=== PATIENT | female | born 1980 | race Two or more races ===

== ENCOUNTER → 2016-05-12 | Outpatient (CLI) | payer OTHER ==
[~2016-05-12] MED LIST: MACR100C2 PO
[2016-05-12 08:53] LABS: AUTOMATED NEUTROPHIL # 5.4 TH/MM3 (1.8-7.7); BASOPHIL % 0.6 % (0.0-2.0); EOSINOPHIL # 0.2 TH/MM3 (0-0.4); EOSINOPHIL % 3.1 % (0.0-4.0); HEMO FLAGS DIFF FINAL; LYMPH % 17.3 % (9.0-44.0); LYMPHOCYTE # 1.2 TH/MM3 (1.0-4.8); MEAN CELL VOLUME 85.9 FL (80.0-100.0); MEAN CORPUSCULAR HEMOGLOBIN 28.5 PG (27.0-34.0); MEAN CORPUSCULAR HGB CONC 33.2 % (32.0-36.0); MONO % 4.5 % (0.0-8.0); NEUT % 74.5 % (16.0-70.0); PLATELET COUNT 192 TH/MM3 (150-450); RED BLOOD COUNT 4.19 MIL/MM3 (4.00-5.30); RED CELL DISTRIBUTION WIDTH 12.9 % (11.6-17.2); WHITE BLOOD COUNT 7.1 TH/MM3 (4.0-11.0)
[2016-05-12 13:34] LABS: BACTERIA, URINE MANY /hpf; BLOOD, URINE TRACE (NEG); GLUCOSE,URINE NEG (NEG); KETONE, URINE TRACE mg/dL (NEG); MUCUS URINE FEW /lpf (OCC); SQUAMOUS EPITHELIAL CELL URINE 1 /hpf (0-5); URINE COLOR YELLOW (YELLW/STRAW)
[2016-05-12 13:36] LABS: COMMENT (UR) CULTURE INDICATED; CULTURE IF INDICATED CULTURE INDICATED; NITRITE,URINE POS (NEG)
[2016-05-12 13:46] LABS: AMPHETAMINE, URINE NEG (NEG); BARBITURATES, URINE NEG (NEG); COCAINE, URINE NEG (NEG)
[2016-05-12 13:50] LABS: RUBELLA IGG ANTIBODY 134.8 IU/mL (10.0-500.0); RUBELLA STATUS IMMUNE (IMMUNE)
[2016-05-12 14:11] LABS: SICKLE CELL SCREEN NEG (NEG)
[2016-05-12 14:32] LABS: HEPATITIS B SURFACE ANTIBODY 38.1 mIU/mL
[2016-05-14 13:45] LABS: FREE T4 0.89 NG/DL (0.76-1.46)
[2016-05-15 15:14] LABS: RAPID PLASMA REAGIN SCREEN NON-REACTIVE (NON-REACTVE)
== END ==
LOC: OLAB 07:48
PROVIDERS: ATTEND Obstetrics & Gynecology
DX: O23.41 Unspecified infection of urinary tract in pregnancy, first trimester (principal); B96.20 Unspecified Escherichia coli [E. coli] as the cause of diseases classified elsewhere; Z3A.01 Less than 8 weeks gestation of pregnancy
CPT/HCPCS: 36415; 80307; 81001; 84439; 84443; 85025; 85660; 86317; 86592; 86703; 86762; 86850; 86900; 86901; 87077; 87086; 87186

== ENCOUNTER → 2016-06-06 | Outpatient (CLI) | payer OTHER ==
[2016-06-06 13:49] LABS: ANION GAP 10 MEQ/L (5-15); AST (GOT) 11 U/L (15-37); BICARBONATE 22.7 MEQ/L (21.0-32.0); BLOOD UREA NITROGEN 11 MG/DL (7-18); CHLORIDE 105 MEQ/L (98-107); GLOMERULAR FILTRATION RATE 89 ML/MIN (>89); POTASSIUM 3.7 MEQ/L (3.5-5.1); SODIUM (NA) 138 MEQ/L (136-145)
[2016-06-06 14:09] LABS: ALKALINE PHOSPHATASE 55 U/L (45-117); ALT (GPT) 18 U/L (10-53); FREE T4 0.96 NG/DL (0.76-1.46); GLUCOSE,FASTING 73 MG/DL (74-99); TOTAL BILIRUBIN ADULT 0.5 MG/DL (0.2-1.0)
== END ==
LOC: CLAB 13:05
PROVIDERS: ATTEND Internal Medicine Endocrinology, Diabetes & Metabolism
DX: E03.9 Hypothyroidism, unspecified (principal)
CPT/HCPCS: 36415; 80053; 84439; 84443

== ENCOUNTER → 2016-06-28 | Outpatient (CLI) | payer OTHER ==
[2016-06-28 10:15] LABS: BACTERIA, URINE MANY /hpf; BLOOD, URINE TRACE (NEG); GLUCOSE,URINE NEG (NEG); KETONE, URINE NEG (NEG); MUCUS URINE FEW /lpf (OCC); NITRITE,URINE NEG (NEG); SQUAMOUS EPITHELIAL CELL URINE <1 /hpf (0-5); URINE COLOR YELLOW (YELLW/STRAW)
[2016-06-28 10:45] LABS: FREE T4 1.15 NG/DL (0.76-1.46)
== END ==
LOC: OLAB 07:55
PROVIDERS: ATTEND Obstetrics & Gynecology
DX: N39.0 Urinary tract infection, site not specified (principal); B96.20 Unspecified Escherichia coli [E. coli] as the cause of diseases classified elsewhere; E03.9 Hypothyroidism, unspecified
CPT/HCPCS: 81001; 84439; 84443; 87077; 87086; 87186

== ENCOUNTER 2016-07-11 20:33 | Emergency (ER) | payer OTHER ==
--- NOTE | 2016-07-11 21:20 | PD ---
HPI Chief Complaint Flank pain right side Date Seen: Jul 11, 2016 Time Seen: 21:15 Travel History International Travel<30 Days: No Contact w/Intl Traveler<30Days: No Known Affected Area: No History of Present Illness HPI 35-year-old female at 18 weeks 4 days sent here by Dr. Mcclellan due to right flank pain since yesterday. Patient denies fever, dysuria, urgency, or frequency. She does complain of a little suprapubic pressure and felt a little dizziness this morning. She has had an uncomplicated that she has experienced 2 prior urinary tract infections and she treated both with Keflex. She did not obtain a post antibiotic urine culture to ensure eradication. Para: 2 : 3 History Past Medical History Narrative Medical Hypothyroidism Obstetric History Obstetric History Spontaneous vaginal delivery 2 Past Surgical History Surgical History: No Previous Surgery Family History Family History: Negative Social History Alcohol Use: No Tobacco Use: No Substance Abuse: No Allergies-Medications (Allergen,Severity, Reaction): Coded Allergies: No Known Allergies (Unverified , 07/11/16) Comments No medication allergies Narrative Medication Synthroid 125 g daily Review of Systems Except as stated in HPI: all other systems reviewed are Neg Physical Exam Narrative GENERAL: Well-nourished, well-developed patient. SKIN: Warm and dry. HEAD: Normocephalic and atraumatic. EYES: No scleral icterus. No injection or drainage. ENT: No nasal drainage noted. Mucous membranes pink. Airway patent. NECK: Supple, trachea midline. No JVD. CARDIOVASCULAR: Regular rate and rhythm without murmurs, gallops, or rubs. RESPIRATORY: Breath sounds equal bilaterally. No accessory muscle use. BREASTS: Bilateral exam showed no masses , no retractions, no nipple discharge. ABDOMEN/GI: Abdomen soft, non-tender, bowel sounds present, no rebound, no guarding. Very mild tenderness in the right flank. Gravid to [-20] weeks size Fundal Height: [-] GENITOURINARY: Deferred FHT's: 135 by Doppler EXTREMITIES: No cyanosis or edema. BACK: Nontender without obvious deformity. NEUROLOGICAL: Awake and alert. Motor and sensory grossly within normal limits. Five out of 5 muscle strength in all muscle groups. Normal speech. Data Data Vital Signs Reviewed: Yes Orders Urinalysis - C+S If Indicated (07/11/16 20:47) Complete Blood Count With Diff (07/11/16 21:11) Labs Laboratory Tests Test 07/11/16 07/11/16 20:47 21:15 Urine Color LIGHT-YELLOW Urine Turbidity HAZY Urine pH 6.0 Urine Specific [place] 1.010 Urine Protein TRACE mg/dL Urine Glucose (UA) NEG mg/dL Urine Ketones NEG mg/dL Urine Occult Blood SMALL Urine Nitrite NEG Urine Bilirubin NEG Urine Urobilinogen LESS THAN 2.0 MG/DL Urine Leukocyte Esterase LARGE Urine RBC 7 /hpf Urine WBC /hpf Urine WBC Clumps OCC Urine Squamous Epithelial 1 /hpf Cells Urine Bacteria RARE /hpf Urine Yeast (Budding) Microscopic Urinalysis Comment CULTURE INDICATED White Blood Count 8.7 TH/MM3 Red Blood Count 3.42 MIL/MM3 Hemoglobin 10.1 GM/DL Hematocrit 29.6 % Mean Corpuscular Volume 86.4 FL Mean Corpuscular Hemoglobin 29.5 PG Mean Corpuscular Hemoglobin 34.2 % Concent Red Cell Distribution Width 13.7 % Platelet Count 185 TH/MM3 Mean Platelet Volume 8.2 FL Neutrophils (%) (Auto) 72.9 % Lymphocytes (%) (Auto) 16.5 % Monocytes (%) (Auto) 7.0 % Eosinophils (%) (Auto) 3.2 % Basophils (%) (Auto) 0.4 % Neutrophils # (Auto) 6.3 TH/MM3 Lymphocytes # (Auto) 1.4 TH/MM3 Monocytes # (Auto) 0.6 TH/MM3 Eosinophils # (Auto) 0.3 TH/MM3 Basophils # (Auto) 0.0 TH/MM3 CBC Comment DIFF FINAL Differential Comment MDM Plan 35-year-old female with a lower urinary tract infection. Patient is afebrile with a normal white blood cell count. He has taken Keflex before during this and probably has not had eradication with this particular antibiotic. Macrobid will be prescribed with first dose here in the OB ED and then a written prescription given. Recommendations were given for a urine culture after completion of antibiotic. Diagnosis Diagnosis: Primary Impression: Urinary tract infection affecting care of mother in second trimester, antepartum Additional Impression: 18 weeks gestation of Disposition: DISCHARGE HOME Nereida Argueta MD Jul 11, 2016 21:20
[2016-07-11 21:35] LABS: AUTOMATED NEUTROPHIL # 6.3 TH/MM3 (1.8-7.7); BASOPHIL % 0.4 % (0.0-2.0); EOSINOPHIL # 0.3 TH/MM3 (0-0.4); EOSINOPHIL % 3.2 % (0.0-4.0); HEMATOCRIT 29.6 % (35.0-46.0); HEMO FLAGS DIFF FINAL; LYMPH % 16.5 % (9.0-44.0); LYMPHOCYTE # 1.4 TH/MM3 (1.0-4.8); MEAN CELL VOLUME 86.4 FL (80.0-100.0); MEAN CORPUSCULAR HEMOGLOBIN 29.5 PG (27.0-34.0); MEAN CORPUSCULAR HGB CONC 34.2 % (32.0-36.0); NEUT % 72.9 % (16.0-70.0); PLATELET COUNT 185 TH/MM3 (150-450); RED BLOOD COUNT 3.42 MIL/MM3 (4.00-5.30); RED CELL DISTRIBUTION WIDTH 13.7 % (11.6-17.2); WHITE BLOOD COUNT 8.7 TH/MM3 (4.0-11.0)
[2016-07-11 21:47] LABS: BACTERIA, URINE RARE /hpf; BLOOD, URINE SMALL (NEG); COMMENT (UR) CULTURE INDICATED; CULTURE IF INDICATED CULTURE INDICATED; GLUCOSE,URINE NEG (NEG); KETONE, URINE NEG (NEG); NITRITE,URINE NEG (NEG); SQUAMOUS EPITHELIAL CELL URINE 1 /hpf (0-5); URINE COLOR LIGHT-YELLOW (YELLW/STRAW)
[2016-07-11] MEDS ORDERED: NITROFURANTOIN MONOHYD MACROCR 100 MG CAP PO STA (22:02)
[2016-07-11] MEDS ORDERED: MACR100C2 PO (22:10)
== END 2016-07-11 22:00 | disposition home or self-care (01) ==
LOC: HOBED 20:33
DX: O23.42 Unspecified infection of urinary tract in pregnancy, second trimester (principal); Z3A.18 18 weeks gestation of pregnancy
CPT/HCPCS: 81001; 85025; 87086; 99284

== ENCOUNTER → 2016-09-06 | Outpatient (CLI) | payer OTHER ==
[2016-09-06 11:33] LABS: REVIEW FLAG FINAL
[2016-09-06 12:23] LABS: BACTERIA, URINE OCC /hpf; BLOOD, URINE NEG (NEG); GLUCOSE,URINE NEG (NEG); KETONE, URINE NEG (NEG); NITRITE,URINE NEG (NEG); PH, URINE 6.5 (5.0-8.5); SQUAMOUS EPITHELIAL CELL URINE <1 /hpf (0-5); URINE COLOR YELLOW (YELLW/STRAW)
[2016-09-06 13:57] LABS: FREE T4 0.96 NG/DL (0.76-1.46)
== END ==
LOC: OLAB 09-05 09:27 → CLAB 09:41
PROVIDERS: ATTEND Obstetrics & Gynecology
DX: O23.43 Unspecified infection of urinary tract in pregnancy, third trimester (principal); B96.7 Clostridium perfringens [C. perfringens] as the cause of diseases classified elsewhere; B96.1 Klebsiella pneumoniae [K. pneumoniae] as the cause of diseases classified elsewhere; B96.20 Unspecified Escherichia coli [E. coli] as the cause of diseases classified elsewhere; E03.9 Hypothyroidism, unspecified
CPT/HCPCS: 36415; 81001; 82951; 84439; 84443; 85014; 85018; 86703; 87077; 87086; 87186; 87340; G0480

== ENCOUNTER 2016-12-01 09:58 | Inpatient (IN) | payer OTHER ==
[~2016-12-01] VITALS: Ht 167.6 cm; Wt 116.0 kg
[2016-12-01] VITALS (65 sets, daily range): BP systolic 90–139; BP diastolic 15–105; PULSE 57–193; RESP 8–20; TEMP 98–98.9
[2016-12-01] MEDS ORDERED: LACTATED RINGER'S 1000 ML INJ 1,000 ML IV PRN (10:21)
[2016-12-01] MEDS ORDERED: SODIUM CHLOR 0.9% 1000 ML INJ 1,000 ML OTHER PRN (10:21)
[2016-12-01] MEDS ORDERED: ONDANSETRON HCL 4 MG/2 ML VIAL IV PRN (10:30)
[2016-12-01] MEDS ORDERED: MISOPROSTOL 25 MCG SUPP VAGINAL ONE (10:30)
[2016-12-01] MEDS ORDERED: LIDOCAINE HCL 1% 50 ML VIAL I-DERMAL PRN (10:30)
[2016-12-01] MEDS ORDERED: OXYTOCIN 30 UNITS-500ML PREMIX 500 ML IV ONE (10:30)
[2016-12-01] MEDS ORDERED: SODIUM CHLORIDE 0.9% FLUSH 10 ML FLUSH IV FLUSH PRN ×2 (10:30→18:45)
[2016-12-01] MEDS ORDERED: MINERAL OIL 10 ML VIAL TOPICAL PRN (10:30)
[2016-12-01] MEDS ORDERED: LIDOCAINE HCL 1% 50 ML VIAL INFIL PRN (10:30)
[2016-12-01] MEDS ORDERED: CITRIC ACID-SODIUM CITRATE LIQ 30 ML UDC PO SCH (10:30)
[2016-12-01] MEDS ORDERED: SODIUM CHLORID 0.9% 500 ML INJ 500 ML IV PRN (10:30)
[2016-12-01] MEDS: LACTATED RINGER'S 1000 ML INJ 1,000 ML IV SCH ×2 (10:40→17:54)
[2016-12-01] MEDS ORDERED: SODIUM CHLOR 0.9% 1000 ML INJ 1,000 ML IV PRN (10:41)
--- NOTE | 2016-12-01 10:41 | HHI.HP ---
HPI Chief Complaint iol at term Travel History International Travel<30 Days: No Contact w/Intl Traveler<30Days: No Known Affected Area: No History of Present Illness HPI 36 yo with iup at 39w3d by first trimester u/s admitted for iol at term , AMA, suspected macrosomia. PNC c/b hypothyroidism, managed by endocrine; anemia, managed by hematology; recurrent uti, on suppression. She has good FM, irreg ctx, no lof or vb. Weeks Gestation: 39 Para: 2 : 3 History Past Medical History Narrative Medical anemia, B12 deficiency, Maddie thryroiditis. seasonal allergies. recurrent anemia Obstetric History Obstetric History 2 ftsvd, no complications. under 7 lb Past Surgical History Surgical History: No Previous Surgery Family History Family History: Negative Social History Alcohol Use: No Tobacco Use: No Substance Abuse: No Allergies-Medications (Allergen,Severity, Reaction): Coded Allergies: No Known Allergies (Unverified , 07/11/16) Home Meds Active Scripts Nitrofurantoin Monohydrate Macrocrystals (Macrobid) 100 Mg Cap, 100 MG PO BID for Infection, #14 CAP 0 Refills Prov:Nereida Argueta MD 07/11/16 Review of Systems General / Constitutional: No: Fever, Weight Gain, Chills, Other Eyes: No: Diploplia, Blurred Vision, Visual changes, Pain, Photophobia HENT: No: Headaches, Vertigo, Lightheadedness Cardiovascular: No: Irregular Rhythm, Chest Pain or Discomfort, Palpitations, Tachycardia, Syncope, Varicosities, Edema, Cyanosis Respiratory: No: Cough, Short of Breath, Other Gastrointestinal: No: Nausea, Vomiting, Diarrhea Genitourinary: No: Decreased Urinary Output, Oliguria Musculoskeletal: No: Limited ROM, Weakness, Cramping, Edema, Pain Skin: No Rash, No Itching, No Dryness, No Lumps, No Change in Pigmentation, No Change in Nails, No Alopecia, No Lesions Neurologic: No: Weakness, Dizziness, Syncope, Focal Abnormalities, Coordination Problem, Headache, Slurred Speech, Seizures Psychiatric: No: Depression, Suicidal Ideations, Homicidal Ideation Endocrine: No: Heat Intolerance, Cold Intolerance, Polydipsia, Polyuria, Other Physical Exam Narrative GENERAL: Well-nourished, well-developed patient. SKIN: Warm and dry. HEAD: Normocephalic and atraumatic. EYES: No scleral icterus. No injection or drainage. ENT: No nasal drainage noted. Mucous membranes pink. Airway patent. NECK: Supple, trachea midline. No JVD. CARDIOVASCULAR: Regular rate and rhythm without murmurs, gallops, or rubs. RESPIRATORY: Breath sounds equal bilaterally. No accessory muscle use. ABDOMEN/GI: Abdomen soft, non-tender, bowel sounds present, no rebound, no guarding Gravid to 39 weeks size GENITOURINARY: External Genitalia: intact and normal in appearance BUS glands: [-] Cervix:1-, soft posterior in office yesterday; per nurse check today /, mid to posterior Presentation:ceph Membranes: [intact Uterine Contractions: [-] FHT's: Category: I Decels: [-] EXTREMITIES: No cyanosis or edema. BACK: Nontender without obvious deformity. No CVA tenderness. NEUROLOGICAL: Awake and alert. Motor and sensory grossly within normal limits. Five out of 5 muscle strength in all muscle groups. Normal speech. Caprini VTE Risk Assessment Caprini VTE Risk Assessment: No/Low Risk (score <= 1) VTE Pharm Contraindication: High risk for bleeding Caprini Risk Assessment Model Point Value = 1 Point Value = 2 Point Value = 3 Point Value = 5 Age 41-60 Minor surgery BMI > 25 kg/m2 Swollen legs Varicose veins or History of unexplained or recurrent spontaneous Oral contraceptives or hormone replacement Sepsis (< 1 month) Serious lung disease, including pneumonia (< 1 month) Abnormal pulmonary function Acute myocardial infarction Congestive heart failure (< 1 month) History of inflammatory bowel disease Medical patient at bed rest Age 61-74 Arthroscopic surgery Major open surgery (> 45 min) Laparoscopic surgery (> 45 min) Malignancy Confined to bed (> 72 hours) Immobilizing plaster cast Central venous access Age >= 75 History of VTE Family history of VTE Factor V Leiden Prothrombin [id number] Lupus anticoagulant Anticardiolipin antibodies Elevated serum homocysteine Heparin-induced thrombocytopenia Other congenital or acquired thrombophilia Stroke (< 1 month) Elective arthroplasty Hip, pelvis, or leg fracture Acute spinal cord injury (< 1 month) Prophylaxis Regimen Total Risk Factor Score Risk Level Prophylaxis Regimen 0-1 Low Early ambulation 2 Moderate Order ONE of the following: *Sequential Compression Device (SCD) *Heparin 5000 units SQ BID 3-4 Higher Order ONE of the following medications: *Heparin 5000 units SQ TID *Enoxaparin/Lovenox 40 mg SQ daily (WT < 150 kg, CrCl > 30 mL/min) *Enoxaparin/Lovenox 30 mg SQ daily (WT < 150 kg, CrCl > 10-29 mL/min) *Enoxaparin/Lovenox 30 mg SQ BID (WT < 150 kg, CrCl > 30 mL/min) AND/OR *Sequential Compression Device (SCD) 5 or more Highest Order ONE of the following medications: *Heparin 5000 units SQ TID (Preferred with Epidurals) *Enoxaparin/Lovenox 40 mg SQ daily (WT < 150 kg, CrCl > 30 mL/min) *Enoxaparin/Lovenox 30 mg SQ daily (WT < 150 kg, CrCl > 10-29 mL/min) *Enoxaparin/Lovenox 30 mg SQ BID (WT < 150 kg, CrCl > 30 mL/min) AND *Sequential Compression Device (SCD) Data Data Vital Signs Reviewed: Yes Orders Orders Admit To Inpatient (12/01/16 ) Vital Signs (Adult) .Per protocol (12/01/16 10:21) Activity Oob Ad Linda (12/01/16 10:21) Heart (12/01/16 10:21) Amnioinfusion (12/01/16 10:21) Urinary Catheter Management .ONCE (12/01/16 10:21) Lactated Ringer's 1000 Ml Inj (Lr 1000 M (12/01/16 10:21) Lactated Ringer's 1000 Ml Inj (Lr 1000 M (12/01/16 10:21) Sodium Chlorid 0.9% 500 Ml Inj (Ns 500 M (12/01/16 10:30) Sodium Chlor 0.9% 1000 Ml Inj (Ns 1000 M (12/01/16 10:41) Lidocaine 1% Inj (50 Ml) (Xylocaine 1% I (12/01/16 10:30) Group B Strep: Negative Assessment/Plan Problem List: (1) Advanced maternal age in multigravida ICD Codes: O09.529 - Supervision of elderly multigravida, unspecified trimester Qualifiers: Qualified Codes: O09.523 - Supervision of elderly multigravida, third trimester (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 1) IOL- sheehan score improved on todya's exam. will start with pitocin and likely arom next check. 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
[2016-12-01 10:49] LABS: AUTOMATED NEUTROPHIL # 4.9 TH/MM3 (1.8-7.7); BASOPHIL % 0.3 % (0.0-2.0); EOSINOPHIL # 0.1 TH/MM3 (0-0.4); EOSINOPHIL % 1.6 % (0.0-4.0); HEMATOCRIT 32.1 % (35.0-46.0); HEMO FLAGS DIFF FINAL; LYMPH % 17.3 % (9.0-44.0); LYMPHOCYTE # 1.2 TH/MM3 (1.0-4.8); MEAN CELL VOLUME 86.5 FL (80.0-100.0); MEAN CORPUSCULAR HEMOGLOBIN 30.3 PG (27.0-34.0); MONO % 8.3 % (0.0-8.0); NEUT % 72.5 % (16.0-70.0); PLATELET COUNT 170 TH/MM3 (150-450); RED BLOOD COUNT 3.71 MIL/MM3 (4.00-5.30); RED CELL DISTRIBUTION WIDTH 15.2 % (11.6-17.2); WHITE BLOOD COUNT 6.7 TH/MM3 (4.0-11.0)
[2016-12-01 10:50] LABS: BLOOD, URINE NEG (NEG); COMMENT (UR) CULT NOT INDICATED; CULTURE IF INDICATED CULT NOT INDICATED; GLUCOSE,URINE NEG (NEG); KETONE, URINE NEG (NEG); MUCUS URINE FEW /lpf (OCC); NITRITE,URINE NEG (NEG); PH, URINE 6.5 (5.0-8.5); SQUAMOUS EPITHELIAL CELL URINE 1 /hpf (0-5); URINE COLOR YELLOW (YELLW/STRAW)
[2016-12-01] MEDS ORDERED: OXYTOCIN 30 UNITS-500ML PREMIX 500 ML IV SCH ×2 (11:00→18:45)
[2016-12-01] MEDS ORDERED: MISOPROSTOL 25 MCG SUPP VAGINAL PRN (14:30)
--- NOTE | 2016-12-01 14:56 | PD.LABORPN ---
Subjective Subjective Pt feeling comfortable, contractions not strong yet. On pit of 16 Objective Vital Signs Vital Signs Date Time Temp Pulse Resp B/P (MAP) Pulse Ox O2 Delivery O2 Flow Rate FiO2 12/01/16 14:32 105 123/79 (94) 12/01/16 13:35 59 134/36 (68) 12/01/16 12:28 98.1 67 18 121/68 (85) 12/01/16 11:45 98.3 18 12/01/16 11:36 89 117/66 (83) 12/01/16 10:30 98.3 12/01/16 10:30 18 Objective Pelvic Exam: Uterine Contractions: q 4+ min FHT's: Category: I Baseline: 140 Reactive: [-] Variability:mod Decels: [-] Weeks Gestation: 39 Gest Age Assessed Date: Dec 01, 2016 Gest Age Assessed Time: 14:55 Pt started active labor?: No Medical induction of labor?: Yes Medical induction start date: Dec 01, 2016 Medical induction start time: 10:00 Artificial rupture of membrane: Yes Artificial ROM date: Dec 01, 2016 Artifical ROM time: 14:56 Assessment/Plan Problem List: (1) Advanced maternal age in multigravida ICD Codes: O09.529 - Supervision of elderly multigravida, unspecified trimester Qualifiers: Qualified Codes: O09.523 - Supervision of elderly multigravida, third trimester (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 1) IOL- exam /3, arom this check 1455, clear. 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
[2016-12-01] MEDS ORDERED: fentaNYL 2MCG-BUPIV 0.125% INJ 100 ML ONE (15:46)
[2016-12-01] MEDS ORDERED: MEASLES, MUMPS, RUBELLA VACCINE 0.5 ML VIAL SQ ONE (16:00)
[2016-12-01] MEDS ORDERED: DIPHTH/TETANUS/ACEL PERTUSSIS (BOOSTER) 0.5 ML VIAL/PFS IM ONE (16:00)
[2016-12-01] MEDS ORDERED: BUPIVACAINE HCL PF 0.25% 10 ML VIAL ONE (16:00)
[2016-12-01] MEDS ORDERED: ePHEDrine/NS 25 MG/5 ML SYR ONE (16:01)
[2016-12-01] MEDS ORDERED: fentaNYL 2MCG-BUPIV 0.125% 100 ML EPIDURAL SCH (16:45)
[2016-12-01] MEDS ORDERED: NO SYSTEM NARCOTICS PRN (16:45)
[2016-12-01] MEDS ORDERED: ePHEDrine/NS 25 MG/5 ML SYR IV PRN (16:45)
[2016-12-01] MEDS ORDERED: DO NOT ADMINISTER ANTICOAGULANTS PRN (16:45)
[2016-12-01] MEDS ORDERED: MISOPROSTOL 200 MCG TAB ONE (18:24)
--- NOTE | 2016-12-01 18:42 | PD.OB.DELI ---
Weeks gestation: 39 Gest age assessed date: Dec 01, 2016 Gest age assessed time: 14:55 Pt started active labor?: Yes Medical induction of labor?: Yes Medical induction start date: Dec 01, 2016 Medical induction start time: 10:00 Artificial rupture of membrane: Yes Artificial ROM date: Dec 01, 2016 Artifical ROM time: 14:56 Anesthesia: Epidural Episiotomy: None Vaginal Delivery: Normal Presentation: Occiput anterior Nuchal Cord: x1 (loose and reduced) Delivery date: Dec 01, 2016 Delivery time: 18:07 One Minute : 8 Five Minute : 9 Weight: 7lb 7oz Placenta: Spontaneous delivery, Intact, 3 vessel cord Laceration: 2 deg Repair: Chromic running Estimated blood loss: 700ml Additional Information misoprostol 800 micrograms Pr and bimanual uterine massage performed. Approx 700ml ebl noted. Fundus was firm. Lower uterine segment with decreased tone which improved after interventions. Mitzy Berrios MD Dec 01, 2016 18:42
[2016-12-01] MEDS ORDERED: ALUMINUM/MAGNESIUM/SIMETH 30 ML CUP PO PRN (18:45)
[2016-12-01] MEDS ORDERED: DOCUSATE SODIUM 50 MG/SENNA 8.6 MG TAB PO PRN (18:45)
[2016-12-01] MEDS ORDERED: IBUPROFEN 600 MG TAB PO PRN (18:45)
[2016-12-01] MEDS ORDERED: ZOLPIDEM TARTRATE 5 MG TAB PO PRN (18:45)
[2016-12-01] MEDS ORDERED: ONDANSETRON ODT 4 MG TAB PO PRN (18:45)
[2016-12-01] MEDS ORDERED: SODIUM CHLORIDE 0.9% FLUSH 10 ML FLUSH IV FLUSH SCH (21:00)
[2016-12-02] MEDS: ACETAMINOPHEN 325 MG TAB PO PRN ×2 (02:32→10:32)
[2016-12-02] MEDS: BENZOCAINE 20% TOPICAL SPRAY 60 ML CAN TOPICAL PRN (02:32)
[2016-12-02] MEDS: WITCH HAZEL 50%/GLYCERIN 12.5% 40 PAD JAR TOPICAL PRN (02:32)
[2016-12-02 04:01] LABS: AUTOMATED NEUTROPHIL # 6.1 TH/MM3 (1.8-7.7); BASOPHIL % 0.4 % (0.0-2.0); EOSINOPHIL # 0.1 TH/MM3 (0-0.4); EOSINOPHIL % 1.5 % (0.0-4.0); HEMO FLAGS DIFF FINAL; LYMPH % 17.7 % (9.0-44.0); LYMPHOCYTE # 1.5 TH/MM3 (1.0-4.8); MEAN CELL VOLUME 86.6 FL (80.0-100.0); MEAN CORPUSCULAR HEMOGLOBIN 29.7 PG (27.0-34.0); MEAN CORPUSCULAR HGB CONC 34.3 % (32.0-36.0); MONO % 8.1 % (0.0-8.0); NEUT % 72.3 % (16.0-70.0); PLATELET COUNT 141 TH/MM3 (150-450); RED BLOOD COUNT 3.34 MIL/MM3 (4.00-5.30); RED CELL DISTRIBUTION WIDTH 15.1 % (11.6-17.2); WHITE BLOOD COUNT 8.4 TH/MM3 (4.0-11.0)
[2016-12-02] MEDS: LEVOTHYROXINE SODIUM 125 MCG TAB PO SCH (06:42)
[2016-12-02 10:00] VITALS: BP 121/73; PULSE 80; RESP 20; TEMP 98
--- NOTE | 2016-12-02 10:16 | HHI.OB ---
Subjective Post Day: 1 Remarks no complaints, cbc stable, Objective Vitals/I&O Vital Signs Date Time Temp Pulse Resp B/P (MAP) Pulse Ox O2 Delivery O2 Flow Rate FiO2 12/01/16 21:15 86 122/61 (81) 12/01/16 21:15 98.9 20 12/01/16 20:30 18 12/01/16 20:16 83 137/83 (101) 12/01/16 20:15 18 12/01/16 20:01 89 137/77 (97) 12/01/16 20:00 18 12/01/16 19:47 73 127/69 (88) 12/01/16 19:45 18 12/01/16 19:31 193 90/15 (40) 12/01/16 19:30 18 12/01/16 19:16 132 133/81 (98) 12/01/16 19:15 98.4 18 12/01/16 19:01 83 128/86 (100) 12/01/16 18:46 82 139/76 (97) 12/01/16 18:45 98.0 16 12/01/16 18:31 94 135/81 (99) 12/01/16 18:16 88 111/77 (88) 12/01/16 18:01 96 131/78 (95) 12/01/16 18:00 78 12/01/16 17:55 71 12/01/16 17:50 89 12/01/16 17:48 76 125/76 (92) 12/01/16 17:45 75 12/01/16 17:40 79 12/01/16 17:35 68 12/01/16 17:32 64 137/82 (100) 12/01/16 17:31 90 123/105 (111) 12/01/16 17:30 70 12/01/16 17:25 84 12/01/16 17:20 73 12/01/16 17:16 57 121/68 (85) 12/01/16 17:15 60 12/01/16 17:05 75 12/01/16 17:01 72 129/74 (92) 12/01/16 17:00 67 12/01/16 16:55 70 12/01/16 16:51 101 117/81 (93) 12/01/16 16:50 69 12/01/16 16:46 67 118/68 (85) 12/01/16 16:45 98.2 16 12/01/16 16:45 74 12/01/16 16:41 65 118/68 (85) 12/01/16 16:40 65 12/01/16 16:36 67 123/69 (87) 12/01/16 16:35 68 12/01/16 16:31 72 117/63 (81) 12/01/16 16:30 73 12/01/16 16:29 71 114/66 (82) 12/01/16 16:27 68 124/59 (80) 12/01/16 16:25 73 122/64 (83) 12/01/16 16:25 75 12/01/16 16:23 72 122/66 (84) 12/01/16 16:21 74 127/61 (83) 12/01/16 16:20 90 12/01/16 16:19 88 120/59 (79) 12/01/16 16:17 87 120/71 (87) 12/01/16 16:15 65 12/01/16 16:15 75 119/75 (90) 12/01/16 16:10 80 12/01/16 16:05 81 12/01/16 14:45 98.2 18 12/01/16 14:32 105 123/79 (94) 12/01/16 13:45 98.2 8 12/01/16 13:45 18 12/01/16 13:35 59 134/36 (68) 12/01/16 12:28 98.1 67 18 121/68 (85) 12/01/16 11:45 98.3 18 12/01/16 11:36 89 117/66 (83) 12/01/16 10:30 98.3 12/01/16 10:30 18 Objective Remarks GENERAL: Well-nourished, well-developed patient. CARDIOVASCULAR: Regular rate and rhythm without murmurs, gallops, or rubs. RESPIRATORY: Breath sounds equal bilaterally. No accessory muscle use. ABDOMEN/GI: Abdomen soft, non-tender. Fundus: Firm, non-tender at umbilicus. GENITOURINARY: Light to moderate bleeding. EXTREMITIES: No cyanosis or edema, non-tender, without signs of DVT. Medications and IVs Current Medications Medications (Trade) Dose Ordered Sig/Ilene Route Start Time Stop Time Status Last Admin (NS Flush) 2 ml BID IV FLUSH 12/01/16 21:00 (NS Flush) 2 ml UNSCH PRN IV FLUSH 12/01/16 18:45 (Tylenol) 650 mg Q4H PRN PO 12/01/16 18:45 12/02/16 02:32 (Motrin) 600 mg Q6H PRN PO 12/01/16 18:45 12/02/16 02:32 (Americaine 20% Top Spr) 1 spray Q4H PRN TOPICAL 12/01/16 18:45 12/02/16 02:32 (Tucks Pads) 1 applic QID PRN TOPICAL 12/01/16 18:45 12/02/16 02:32 (Gabby-Colace) 2 tab Q12H PRN PO 12/01/16 18:45 (Ambien) 5 mg HS PRN PO 12/01/16 18:45 (Mag-Al Plus Susp Liq) 15 ml Q8H PRN PO 12/01/16 18:45 (Zofran Odt) 4 mg Q6H PRN PO 12/01/16 18:45 (Synthroid) 125 mcg DAILY@0600 PO 12/02/16 06:00 12/02/16 06:42 Assessment/Plan Problem List: (1) Advanced maternal age in multigravida ICD Codes: O09.529 - Supervision of elderly multigravida, unspecified trimester Qualifiers: Qualified Codes: O09.523 - Supervision of elderly multigravida, third trimester (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 hasimotos- continue synthroid 2. cbc stable today 3. cont PP care Discharge Planning routine PPD#2 Attending Attestation pt seen by me Kerry Cox MD Dec 02, 2016 10:16
[2016-12-02] MEDS: SODIUM CHLORIDE 0.9% FLUSH 10 ML FLUSH IV FLUSH SCH (10:30)
[2016-12-02 23:04] VITALS: BP 128/79; PULSE 82; RESP 18; TEMP 98.2
[2016-12-03] MEDS: ACETAMINOPHEN 325 MG TAB PO PRN (03:21)
[2016-12-03] MEDS: LEVOTHYROXINE SODIUM 125 MCG TAB PO SCH (05:57)
--- NOTE | 2016-12-03 08:47 | HHI.OB ---
Subjective Post Day: 2 Remarks no complaints, Objective Vitals/I&O Vital Signs Date Time Temp Pulse Resp B/P (MAP) Pulse Ox O2 Delivery O2 Flow Rate FiO2 12/03/16 04:21 18 12/02/16 23:04 98.2 12/02/16 23:04 82 18 128/79 (95) 12/02/16 10:00 98.0 80 20 121/73 (89) Objective Remarks GENERAL: Well-nourished, well-developed patient. CARDIOVASCULAR: Regular rate and rhythm without murmurs, gallops, or rubs. RESPIRATORY: Breath sounds equal bilaterally. No accessory muscle use. ABDOMEN/GI: Abdomen soft, non-tender. Fundus: Firm, non-tender at umbilicus. GENITOURINARY: Light to moderate bleeding. EXTREMITIES: No cyanosis or edema, non-tender, without signs of DVT. Medications and IVs Current Medications Medications (Trade) Dose Ordered Sig/Ilene Route Start Time Stop Time Status Last Admin (NS Flush) 2 ml BID IV FLUSH 12/01/16 21:00 (NS Flush) 2 ml UNSCH PRN IV FLUSH 12/01/16 18:45 (Tylenol) 650 mg Q4H PRN PO 12/01/16 18:45 12/03/16 03:21 (Motrin) 600 mg Q6H PRN PO 12/01/16 18:45 12/02/16 02:32 (Americaine 20% Top Spr) 1 spray Q4H PRN TOPICAL 12/01/16 18:45 12/02/16 02:32 (Tucks Pads) 1 applic QID PRN TOPICAL 12/01/16 18:45 12/02/16 02:32 (Gabby-Colace) 2 tab Q12H PRN PO 12/01/16 18:45 (Ambien) 5 mg HS PRN PO 12/01/16 18:45 (Mag-Al Plus Susp Liq) 15 ml Q8H PRN PO 12/01/16 18:45 (Zofran Odt) 4 mg Q6H PRN PO 12/01/16 18:45 (Synthroid) 125 mcg DAILY@0600 PO 12/02/16 06:00 12/03/16 05:57 Assessment/Plan Problem List: (1) Advanced maternal age in multigravida ICD Codes: O09.529 - Supervision of elderly multigravida, unspecified trimester Qualifiers: Qualified Codes: O09.523 - Supervision of elderly multigravida, third trimester (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 cbc stable 3. cont PP care Discharge Planning routine PPD#2 Attending Attestation pt seen by Kerry Stein MD Dec 03, 2016 08:47
[2016-12-03] MEDS ORDERED: IBUP-232 PO (08:50)
--- NOTE | 2016-12-03 08:50 | HHI.DCPOC ---
Discharge Care Plan Your Health Problems Are: Pelvic pain Report Symptoms to Your Doctor -Temperature above 100.5 degrees -Redness, of incision or excessive or foul smelling drainage -Unusual pain or calf pain -Increased vaginal bleeding -Painful or difficulty urinating -Feelings of extreme sadness or anxiety after 2 weeks Goals to Promote Your Health * To prevent worsening of your condition and complications * To maintain your health at the optimal level Directions to Meet Your Goals Take your medications as prescribed Follow your dietary instruction Follow activity as directed Ensure plenty of rest for recovery Drink fluids for hydration Keep your appointments as scheduled Take your immunizations and boosters as scheduled If your symptoms worsen call your PCP, if no PCP go to Urgent Care Center or Emergency Room Smoking is Dangerous to Your Health. Avoid second hand smoke Call the 24-hour crisis hotline for domestic abuse at Kerry Cox MD Dec 03, 2016 08:50
[2016-12-03] MEDS: SODIUM CHLORIDE 0.9% FLUSH 10 ML FLUSH IV FLUSH SCH (09:00)
[2016-12-03 10:25] VITALS: BP 128/63; PULSE 61; RESP 16; TEMP 98.5
[2016-12-03] MEDS: BENZOCAINE 20% TOPICAL SPRAY 60 ML CAN TOPICAL PRN (12:45)
[2016-12-03] MEDS: WITCH HAZEL 50%/GLYCERIN 12.5% 40 PAD JAR TOPICAL PRN (12:45)
== END 2016-12-03 13:06 | disposition home or self-care (01) | DRG 775 ==
LOC: H2EB 09:58 → H1EA 21:01
PROVIDERS: ADMIT Obstetrics & Gynecology; ATTEND Obstetrics & Gynecology
PROC: 10E0XZZ Delivery of Products of Conception, External Approach (ICD-10-PCS; principal; 2016-12-01)
PROC: 0KQM0ZZ Repair Perineum Muscle, Open Approach (ICD-10-PCS; 2016-12-01)
PROC: 10907ZC Drainage of Amniotic Fluid, Therapeutic from Products of Conception, Via Natural or Artificial Opening (ICD-10-PCS; 2016-12-01)
PROC: 3E033VJ Introduction of Other Hormone into Peripheral Vein, Percutaneous Approach (ICD-10-PCS; 2016-12-01)
DX: O36.63X0 Maternal care for excessive fetal growth, third trimester, not applicable or unspecified (principal); D51.9 Vitamin B12 deficiency anemia, unspecified; O69.81X0 Labor and delivery complicated by cord around neck, without compression, not applicable or unspecified; O99.284 Endocrine, nutritional and metabolic diseases complicating childbirth; E06.3 Autoimmune thyroiditis; O70.1 Second degree perineal laceration during delivery; Z37.0 Single live birth; Z3A.39 39 weeks gestation of pregnancy; Z87.440 Personal history of urinary (tract) infections
CPT/HCPCS: 59025; 81001; 85025; 86900; 86901; J2590; J7120